=== PATIENT | female | born 1980 | race Two or more races ===

== ENCOUNTER 2017-11-03 21:23 | Emergency (ER) | payer OTHER ==
[~2017-11-03] VITALS: Ht 157.5 cm; Wt 51.3 kg
--- NOTE | 2017-11-03 22:16 | NUR ---
pt cousin sapphire diego at bedside.
[2017-11-03 22:22] LABS: BASOPHILS % (AUTO) 0.3 % (0.0-2.0); EOSINOPHILS % (AUTO) 0.2 % (0.0-6.0); HEMATOCRIT 37 % (33-45); HEMOGLOBIN 12.9 g/dL (11.5-14.8); LYMPHOCYTES # (AUTO) 3.7 /CMM (0.8-4.8); LYMPHOCYTES % (AUTO) 40.8 % (20.0-44.0); MEAN CORPUSCULAR HEMOGLOBIN 33 PG (26.0-33.0); MEAN CORPUSCULAR HGB CONC 35 g/dl (31.0-36.0); MEAN CORPUSCULAR VOLUME 95 fL (82-100); MONOCYTES # (AUTO) 0.7 /CMM (0.1-1.30); MONOCYTES % (AUTO) 7.7 % (2.0-12.0); NEUTROPHILS # (AUTO) 4.6 /CMM (1.8-8.9); PLATELET COUNT (AUTO) 277 /CMM (150-450); RDW COEFFICIENT OF VARIATION 13.5 (11.5-15.0); WHITE BLOOD COUNT (AUTO) 9.1 K/uL (4.3-11.0)
[2017-11-03 22:32] LABS: CALCIUM, SERUM 8.7 mg/dL (8.5-10.1); CREATININE 0.5 mg/dL (0.6-1.3); POTASSIUM 3.5 mmol/L (3.5-5.1)
[2017-11-03 22:39] LABS: ALBUMIN 4.1 g/dL (3.4-5.0); BILIRUBIN,DIRECT 0.1 mg/dL (0.0-0.2); BILIRUBIN,TOTAL 0.2 mg/dL (0.2-1.0); TOTAL PROTEIN, SERUM 8.2 g/dL (6.4-8.2)
--- NOTE | 2017-11-03 23:46 | NUR ---
pt asleep, no acute distress noted, resp even and unlabored. call light within reach. will continue to monitor pt closely.
--- NOTE | 2017-11-04 00:03 | NUR ---
pt [id number] no acute distress noted, resp even and unlabored. pt ambulatory to the bathroom with steady gait noted.
--- NOTE | 2017-11-04 01:32 | NUR ---
Patient discharged to home in stable condition. Written and verbal after care instructions given. Patient verbalizes understanding of instruction. ambulatory with a steady gait. pt cousin at bedside to take pt home.
[2017-11-04 01:34] VITALS: BP 111/67
== END 2017-11-04 01:34 | disposition home or self-care (01) ==
LOC: ER 21:25
DX: F10.10 Alcohol abuse, uncomplicated (principal); F32.9 Major depressive disorder, single episode, unspecified
CPT/HCPCS: 36415; 80048; 80076; 80329; 85025; 99284; A4606; G0480 ×2; Z7610